=== PATIENT | female | born 1960 | race Caucasian/White ===

== ENCOUNTER 2024-01-03 07:27 | Emergency (ER) | payer SELFPAY ==
[2024-01-03 07:32] VITALS: BP 97/56
--- NOTE | 2024-01-03 08:49 | ED.GENMED ---
History of Present Illness
General
Chief Complaint: Fall
Source: patient
Exam Limitations: none
Time Seen by Provider: 01/03/24 07:54
Nursing documentation reviewed up to this point in time: agreed with
Travel History
Have you had any contact with someone who has COVID-19?: No
Do you have any symptoms of coronavirus? Fever > 100 degrees, chills, cough, shortness of breath, sore throat, loss of taste or smell, muscle aches, or headache?: No
History of Present Illness
History of Present Illness:
63-year-old female past ministry of COPD presenting to the emergency department today with concerns of fall down 5 steps hitting her right face and right wrist immediate right wrist pain did not lose consciousness not on blood thinners. Did have an
infection surrounding her left eye was post to follow-up with an eye doctor today. Denies any chest pain shortness of breath numbness weakness no leg or extremity discomfort otherwise
Review of Systems
Review of Systems
Allergies reviewed?: Yes
All Other Systems: ROS reviewed and negative except as documented in HPI and ROS
Phy Exam
Physical Exam
Physical Exam:
GENERAL: Alert , in no apparent distress
EYE: Redness and swelling to the preseptal region of the left eye conjunctiva slightly red pupils equal and reactive
NECK: Supple, no significant adenopathy.
ENT: Superficial abrasion to the area just lateral to the right eye no eye involvement o/p clr, mmm.
CARDIAC: Regular rate and rhythm .
LUNGS: Clear breath sounds bilaterally, no acute respiratory distress, no wheezes/rales/rhonchi
ABDOMEN: Soft, without focal tenderness, no r/g, no cvat
NEUROLOGICAL: Alert and oriented, no focal neuro deficits
SKIN: Warm and dry, skin intact.
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
PSYCH: Normal and appropriate interaction.
Course
Orders/Labs/Results
Orders:
Orders
01/03/24 07:[address] [CT Head W/o Iv Contrast] Urgent
Comment:
Reason For Exam: head injury
Wrist, Right 3 Views [CR Wrist - Right Min 3 Views] Urgent
Comment:
Reason For Exam: fall, pain wrist
01/03/24 08:42
Cefdinir [Omnicef] 300 mg PO NOW STA
Vital Signs
Initial and Last Documented VS:
Initial Vital Signs
Temp Pulse Resp BP Pulse Ox
97.6 F 69 18 97/56 96
01/03/24 07:32 01/03/24 07:32 01/03/24 07:32 01/03/24 07:32 01/03/24 07:32
Last Documented Vital Signs
Temp Pulse Resp BP Pulse Ox
97.6 F 69 18 97/56 96
01/03/24 07:32 01/03/24 07:32 01/03/24 07:32 01/03/24 07:32 01/03/24 07:32
Procedures
Splinting/Sling Placement
Right Wrist:
Procedure completed by: myself
Pre-splint extermity exam: neurovascular intact
Type of splint: sugar-tong
Splint material: fiberglass
Splint checked by provider?: Yes
Type of sling: sling fitted
Normal distal neurovascular exam?: Yes
MDM/Problems Addressed
MDM/Problems Addressed:
63-year-old female presenting to the emergency department after a fall. Patient did hit her head denies neck pain no not on thinners also injured her right wrist denies additional injuries. Normal neurologic evaluation patient no distress here
patient with significant pain to the right wrist x-ray showing wrist fracture. Head CT normal. Patient additionally has swelling to the left has been there for a few days appear to be consistent with preseptal cellulitis. She has a penicillin
allergy patient was started on third-generation cephalosporin. Additionally patient with broken right wrist was placed in a sugar-tong splint and advised for orthopedic follow-up. Return precautions given.
*Critical Care Note
Total Time (30-74mins, 75-104mins- exclusive of procedures): Not Applicable
ED Attending Note
-
Portions of this chart may have been created with voice recognition software.� Occasional wrong word or��sound alike� substitutions may have occurred due to the inherent limitations of voice recognition software.
Discharge Plan
Departure
Patient Disposition: Home (Routine Discharge)
Date of Disposition: 01/03/24
Time of Disposition: 10:34
Patient with high blood pressure during this ER visit?: No
Condition: Good
Covid-19: Not Applicable
Discharge Problem:
Fracture of right wrist, Preseptal cellulitis of left eye
Instructions: Preseptal Cellulitis ED, Wrist fracture
Prescriptions:
New
cefdinir 300 mg capsule
300 mg PO BID 7 Days Qty: 14 0RF
Referrals:
Osman Son MD [Active] - Follow up in 5-7 days
Andrey Almazan DO [Family Provider] -
Activity Restrictions/Additional Instructions:
You came to the emergency department today with concerns of a fall. You had a CT scan which was normal your x-ray showed a wrist fracture to the right side you also likely have a preseptal cellulitis. Please follow closely with the eye doctor as
well as orthopedics. Return to the emergency department any worsening, new or concerning symptoms. Please take the prescribed antibiotics.
Interventions
Interventions:
ED-Musculoskeletal Assessment Last Done: 01/03/24 08:05
ED- Neurological Assessment Last Done: 01/03/24 08:05
ED-Skin Assessment Last Done: 01/03/24 08:05
Discharge Date and Time
Print Language: SYRIAC
[2024-01-03] MEDS: OMNICEF 300 MG PO (08:51)
[2024-01-03 10:44] VITALS: BP 128/61
== END 2024-01-03 10:48 | disposition home or self-care (01) ==
LOC: EMR 07:27
PROVIDERS: EMERGENCY PHYSICIAN Emergency Medicine; FAMILY PHYSICIAN Family Medicine
DX: S62.101A Fracture of unspecified carpal bone, right wrist, initial encounter for closed fracture (principal); S09.90XA Unspecified injury of head, initial encounter; L03.213 Periorbital cellulitis; W10.9XXA Fall (on) (from) unspecified stairs and steps, initial encounter; J44.9 Chronic obstructive pulmonary disease, unspecified; Z88.0 Allergy status to penicillin
CPT/HCPCS: 99284; 29125; 70450; 73110

== ENCOUNTER 2024-06-27 06:10 | Day surgery (SDC) | payer BC, SELFPAY ==
[2024-06-15 08:30] VITALS: BMI 19.5
[2024-06-15 09:05] LABS: Hematocrit 39.5 % (37.0-47.0); Hemoglobin 13.8 g/dL (12.0-16.0); Mean Corp Hgb Conc. 34.9 g/dL (33.0-37.0); Mean Corpuscular Hgb 35.6 pg (27.0-31.0); Mean Corpuscular Volume 101.8 fL (81.0-99.0); Mean Platelet Volume 9.3 fL (7.4-10.4); Platelet Count 259 10^3/uL (130-400); Red Blood Cell Count 3.88 10^6/uL (4.20-5.40); Red Cell Dist. Width 12.2 % (11.5-14.5); White Blood Cell Count 6.6 10^3/uL (4.8-10.8)
[2024-06-15 09:42] LABS: Blood Urea Nitrogen 14 mg/dl (7-17); Calcium 9.3 mg/dl (8.4-10.2); Carbon Dioxide 27 mmol/L (22-30); Chloride 103 mmol/L (98-107); Estimated Creatinine Clearance 66 ml/min; Glucose 86 mg/dl (70-99); Potassium 3.9 mmol/L (3.5-5.1); Sodium 144 mmol/L (135-145); eGFR > 60.00
--- NOTE | 2024-06-15 16:14 | PTCARENOTE ---
Abn EKG 06/15/24, Dr Montesinos notified, no further intervention required.
[2024-06-27 10:17] VITALS: BP 144/75
[2024-06-27] MEDS: CELEBREX 200 MG PO (10:27)
[2024-06-27] MEDS: TYLENOL 1000 MG PO (10:28)
[2024-06-27 10:32] VITALS: BMI 19.5
[2024-06-27 13:15] VITALS: BP 106/54
[2024-06-27 13:40] VITALS: BP 113/65
[2024-06-27 13:45] VITALS: BP 111/63
== END 2024-06-27 14:36 | disposition home or self-care (01) ==
LOC: SDS 06:10
PROVIDERS: ATTENDING PHYSICIAN Orthopaedic Surgery Hand Surgery; FAMILY PHYSICIAN Family Medicine
DX: G56.01 Carpal tunnel syndrome, right upper limb (principal); S52.501A Unspecified fracture of the lower end of right radius, initial encounter for closed fracture; W10.9XXA Fall (on) (from) unspecified stairs and steps, initial encounter
CPT/HCPCS: 25350; 64721; C1713; 36415; 80048; 85027; 87070; 87147; 93005

== ENCOUNTER → 2025-04-24 09:55 | Outpatient (REF) | payer BC, SELFPAY ==
[2025-04-24 10:19] LABS: Hematocrit 40.1 % (37.0-47.0); Hemoglobin 14.1 g/dL (12.0-16.0); Mean Corp Hgb Conc. 35.2 g/dL (33.0-37.0); Mean Corpuscular Volume 100.8 fL (81.0-99.0); Nucleated Red Blood Cells % 0 %; Platelet Count 241 10^3/uL (130-400); Red Cell Dist. Width 11.9 % (11.5-14.5)
[2025-04-24 10:57] LABS: Blood Urea Nitrogen 14 mg/dl (7-17); Calcium 9.6 mg/dl (8.4-10.2); Carbon Dioxide 27 mmol/L (22-30); Chloride 108 mmol/L (98-107); Glucose 98 mg/dl (70-99); Potassium 4.5 mmol/L (3.5-5.1); Sodium 142 mmol/L (135-145); eGFR > 60.00
== END ==
LOC: REG 09:55
PROVIDERS: ATTENDING PHYSICIAN Orthopaedic Surgery Hand Surgery
DX: Z01.818 Encounter for other preprocedural examination (principal)
CPT/HCPCS: 36415; 80048; 85025; 93005